=== PATIENT | female | born 1950 | race Caucasian/White ===

== ENCOUNTER → 2017-02-15 | Outpatient (CLI) | payer MEDICARE, MEDICAID ==
[~2017-02-15] MED LIST: ALPR0.5T3 PO; BUTA-177 PO; BUTA1CAP57; CHOL200012 PO; CLON0.1T PO; COREG; ENAL10TA PO; HYDR25TA11 PO; METO25TA35 PO; VASOTEC PO; XANAX; atarax PO
[2017-02-15 16:05] LABS: HEMOGLOBIN 15.5 g/dL (11.7-16.4)
[2017-02-15 16:19] LABS: ASPARTATE AMINO TRANSFERASE 21 U/L (15-37); BLOOD UREA NITROGEN 12 mg/dL (7-18)
== END | disposition home or self-care (01) ==
LOC: STAR 14:19
PROVIDERS: ATTEND Specialist
DX: Z01.811 Encounter for preprocedural respiratory examination (principal); I51.7 Cardiomegaly; M95.4 Acquired deformity of chest and rib; R79.1 Abnormal coagulation profile; Z90.722 Acquired absence of ovaries, bilateral; Z90.710 Acquired absence of both cervix and uterus
CPT/HCPCS: 36415; 71020; 80053; 85025; 85610; 85730; 93005

== ENCOUNTER 2017-03-03 23:40 | Observation (INO) | payer MEDICARE, MEDICAID ==
[~2017-03-03] VITALS: Ht 170.2 cm; Wt 66.4 kg
[2017-03-03] MEDS ORDERED: MORPHINE SULFATE 4 MG/ML, 1ML ONE (23:51)
[2017-03-03] MEDS ORDERED: ONDANSETRON 2MG/ML, 2ML ONE (23:51)
[2017-03-03] MEDS ORDERED: METOCLOPRAMIDE 5 MG/ML, 2ML ONE (23:51)
[2017-03-04] MEDS ORDERED: ONDANSETRON 2MG/ML, 2ML IVPush ONE
[2017-03-04] MEDS ORDERED: SODIUM CHLORIDE 0.9% 1,000ML IVBOLUS ONE
[2017-03-04] MEDS ORDERED: SODIUM CHLORIDE FLUSH 10ML SYR IVF ONE
[2017-03-04] MEDS ORDERED: METOCLOPRAMIDE 5 MG/ML, 2ML IVPush ONE
[2017-03-04 00:34] LABS: BLOOD UREA NITROGEN 8 mg/dL (7-18)
[2017-03-04 00:38] LABS: ASPARTATE AMINO TRANSFERASE 22 U/L (15-37)
[2017-03-04] MEDS ORDERED: SODIUM CHLORIDE 0.9% 1,000 ML IV ONE (01:10)
[2017-03-04] MEDS ORDERED: ONDANSETRON 2MG/ML, 2ML IVPush PRN ×3 (01:30→15:00)
[2017-03-04] MEDS ORDERED: MORPHINE SULFATE 4 MG/ML, 1ML IVPush PRN ×3 (01:30→14:00)
[2017-03-04] MEDS ORDERED: PROMETHAZINE 25 MG/ML, 1ML IM PRN (01:30)
[2017-03-04 07:24] VITALS: BP 119/69
[2017-03-04] MEDS ORDERED: DEXAMETHASONE 4 MG/ML, 1ML ONE (09:37)
[2017-03-04] MEDS ORDERED: PROPOFOL 10 MG/ML, 20ML ONE (09:37)
[2017-03-04] MEDS ORDERED: ONDANSETRON 2MG/ML, 2ML ONE ×2 (09:37→11:09)
[2017-03-04] MEDS ORDERED: CEFOTETAN 1 GM ONE (09:37)
[2017-03-04] MEDS ORDERED: NEOSTIGMINE 1 MG/ML, 10ML ONE (09:37)
[2017-03-04] MEDS ORDERED: GLYCOPYRROLATE 0.2MG/1ML ONE (09:37)
[2017-03-04] MEDS ORDERED: ROCURONIUM 10 MG/ML ONE (09:37)
[2017-03-04] MEDS ORDERED: ACETAMINOPHEN 325 MG TABLET PO PRN (11:00)
[2017-03-04] MEDS ORDERED: PROMETHAZINE 25 MG/ML, 1ML IV PRN (11:00)
[2017-03-04] MEDS ORDERED: METOPROLOL 1 MG/ML, 5ML IV PRN (11:00)
[2017-03-04] MEDS ORDERED: hydrALAzine 20 MG/ML, 1ML IV PRN (11:00)
[2017-03-04] MEDS ORDERED: MIDAZOLAM 1 MG/ML, 2ML IV PRN (11:00)
[2017-03-04] MEDS ORDERED: ALBUTEROL SULFATE 2.5 MG/3 ML NPPB PRN (11:00)
[2017-03-04] MEDS ORDERED: OXYcodone 5 MG/5 ML ORAL.SOL UDC PO PRN (11:00)
[2017-03-04] MEDS: FENTANYL PF 100 MCG/2ML IV PRN ×2 (11:05→11:29)
[2017-03-04] MEDS ORDERED: HYDROmorphone 2 MG/ML, 1ML ONE (11:09)
[2017-03-04] MEDS ORDERED: FENTANYL PF 100 MCG/2ML ONE (11:09)
[2017-03-04] MEDS: HYDROmorphone 1 MG/ML, 1ML IV PRN ×4 (11:15→11:54)
[2017-03-04 13:24] VITALS: BP 135/79
[2017-03-04] MEDS ORDERED: KETOROLAC 30 MG/1 ML IVPush PRN ×2 (14:00→15:00)
[2017-03-04] MEDS ORDERED: OXYcodone/APAP 5/325MG TABLET PO PRN ×2 (14:00→15:00)
[2017-03-04] MEDS ORDERED: KETOROLAC 30 MG/1 ML ONE (14:30)
[2017-03-04] MEDS: LACTATED RINGERS 1,000 ML IV SCH (16:14)
[2017-03-04] MEDS ORDERED: PROCHLORPERAZINE 5 MG/ML, 2ML IVPush PRN (16:30)
[2017-03-04] MEDS ORDERED: BUTALB/APAP/CAFFEINE 50MG/325MG/40MG PO PRN (18:00)
[2017-03-04] MEDS: METOCLOPRAMIDE 5 MG/ML, 2ML IVPush SCH (19:30)
[2017-03-04 19:49] VITALS: BP 134/82
[2017-03-04] MEDS: ENALAPRIL 10 MG TABLET PO SCH (20:30)
[2017-03-05] MEDS: METOCLOPRAMIDE 5 MG/ML, 2ML IVPush SCH ×3 (01:30→10:08)
[2017-03-05 02:15] VITALS: BP 126/68
[2017-03-05 07:25] VITALS: BP 135/74
[2017-03-05] MEDS: ENALAPRIL 10 MG TABLET PO SCH (09:21)
[2017-03-05 09:45] LABS: BLOOD UREA NITROGEN 8 mg/dL (7-18)
[2017-03-05] MEDS: LACTATED RINGERS 1,000 ML IV SCH (10:08)
[2017-03-05] MEDS ORDERED: OXYC-223 PO (10:38)
[2017-03-05] MEDS ORDERED: ONDA4TAB7 PO (10:39)
[2017-03-05 12:25] VITALS: BP 115/74
[2017-03-05 15:05] VITALS: BP 124/77
== END 2017-03-05 16:43 | disposition home or self-care (01) ==
LOC: ED 23:46 → INTOOBSV 03-04 01:10 → EDIP 03-04 01:10 → 4NOR 03-04 03:06 → DCLOUNGE 03-05 15:18
PROVIDERS: ADMIT Specialist; ATTEND Specialist
DX: R19.00 Intra-abdominal and pelvic swelling, mass and lump, unspecified site (principal); D25.9 Leiomyoma of uterus, unspecified; D27.0 Benign neoplasm of right ovary; I10 Essential (primary) hypertension; I49.9 Cardiac arrhythmia, unspecified; F41.9 Anxiety disorder, unspecified; K76.9 Liver disease, unspecified
CPT/HCPCS: 36415; 58571; 74020; 80048; 80053; 81003; 83690; 85025; 86850; 86900; 86923; 88307; 88331; 93005; 96375; 96376; G0378; J0780; J1100; J1170; J1885; J2250; J2405; J2704; J2710; J2765; J3010; J7030; J7120; Q0177; 36430; 96374; J3490; S0074

== ENCOUNTER → 2017-08-23 | Outpatient (CLI) | payer MEDICARE, MEDICAID ==
[~2017-08-23] MED LIST changes: -CHOL200012 PO; +CHOL200074 PO; +ONDA4TAB7 PO; +OXYC-306 PO
== END | disposition home or self-care (01) ==
LOC: CFH 09:35
PROVIDERS: ATTEND Internal Medicine Gastroenterology
DX: K80.20 Calculus of gallbladder without cholecystitis without obstruction (principal); I70.0 Atherosclerosis of aorta
CPT/HCPCS: 76700

== ENCOUNTER 2017-11-21 22:53 | Emergency (ER) | payer MEDICARE, MEDICAID ==
[~2017-11-21] VITALS: Ht 152.4 cm; Wt 62.2 kg
[2017-11-21 23:37] VITALS: BP 151/90
[2017-11-21 23:55] LABS: CULTURE INDICATED? YES; MICROSCOPIC INDICATED
[2017-11-22] MEDS ORDERED: CIPROFLOXACIN 500 MG TABLET ONE (01:25)
[2017-11-22] MEDS ORDERED: CIPROFLOXACIN 500 MG TABLET PO ONE (01:30)
[2017-11-22] MEDS ORDERED: PHENAZOPYRIDINE 200 MG TABLET ONE (01:38)
[2017-11-22] MEDS ORDERED: PHENAZOPYRIDINE 200 MG TABLET PO ONE (02:00)
== END 2017-11-22 01:54 | disposition home or self-care (01) ==
LOC: ED 23:59
DX: N30.01 Acute cystitis with hematuria (principal); I10 Essential (primary) hypertension; F43.10 Post-traumatic stress disorder, unspecified; F41.9 Anxiety disorder, unspecified
CPT/HCPCS: 81001; 87077; 87086; 87186

== ENCOUNTER → 2018-01-16 | Outpatient (CLI) | payer MEDICARE, MEDICAID | END | disposition home or self-care (01) | LOC: CFH 12:55 | PROVIDERS: ATTEND Urology | DX: N39.0 Urinary tract infection, site not specified (principal) | CPT/HCPCS: 76770 ==

== ENCOUNTER 2018-09-05 18:39 | Emergency (ER) | payer MEDICARE, MEDICAID ==
[~2018-09-05] VITALS: Ht 170.2 cm; Wt 64.4 kg
[2018-09-05] MEDS ORDERED: METO25TA35 PO (19:12)
[2018-09-05] MEDS ORDERED: ENAL10TA PO (19:12)
[2018-09-05] MEDS ORDERED: ENAL20TA PO (19:12)
[2018-09-05 19:20] LABS: MICROSCOPIC AUTO
[2018-09-05 19:26] LABS: CULTURE INDICATED? YES
[2018-09-05 20:24] VITALS: BP 128/81
== END 2018-09-05 20:51 | disposition home or self-care (01) ==
LOC: ED 19:17
DX: N30.00 Acute cystitis without hematuria (principal); I10 Essential (primary) hypertension; F43.10 Post-traumatic stress disorder, unspecified
CPT/HCPCS: 81001; 87077; 87086; 87186; 99284

== ENCOUNTER → 2019-01-19 | Outpatient (CLI) | payer MEDICARE, MEDICAID ==
[~2019-01-19] MED LIST changes: -CLON0.1T PO; +CLON0.1T22 PO; +ENAL20TA PO
== END | disposition home or self-care (01) ==
LOC: CFH 09:54
PROVIDERS: ATTEND Internal Medicine Gastroenterology
DX: K80.20 Calculus of gallbladder without cholecystitis without obstruction (principal); E83.110 Hereditary hemochromatosis; R94.5 Abnormal results of liver function studies
CPT/HCPCS: 76700

== ENCOUNTER 2019-03-23 14:00 | Outpatient (CLI) | payer MEDICARE, MEDICAID | END 2019-03-23 23:59 | disposition home or self-care (01) | LOC: CFH 14:00 | PROVIDERS: ATTEND Urology | DX: N39.0 Urinary tract infection, site not specified (principal) | CPT/HCPCS: 76770 ==

== ENCOUNTER → 2019-05-13 | Outpatient (CLI) | payer MEDICARE, MEDICAID ==
[~2019-05-13] MED LIST changes: +GADOBUTROL 7.5 MMOL/7.5 ML VIAL ONE
== END | disposition home or self-care (01) ==
LOC: CFH 13:35
PROVIDERS: ATTEND Psychiatry & Neurology Neurology
DX: I72.0 Aneurysm of carotid artery (principal)
CPT/HCPCS: 70546; A9585

== ENCOUNTER → 2020-08-12 | Outpatient (CLI) | payer MEDICARE, MEDICAID ==
[~2020-08-12] MED LIST changes: -ENAL10TA PO; +ENAL10TA9 PO; -ENAL20TA PO; +ENAL20TA9 PO; -GADOBUTROL 7.5 MMOL/7.5 ML VIAL ONE; +HYDR-826 PO; -HYDR25TA11 PO
== END | disposition home or self-care (01) ==
LOC: CFH 09:53
PROVIDERS: ATTEND Internal Medicine Gastroenterology
DX: K80.20 Calculus of gallbladder without cholecystitis without obstruction (principal); E83.110 Hereditary hemochromatosis
CPT/HCPCS: 76700

== ENCOUNTER → 2020-09-28 | Outpatient (CLI) | payer MEDICARE, MEDICAID | END | disposition home or self-care (01) | LOC: CFH 14:21 | PROVIDERS: ATTEND Neurological Surgery | DX: I72.0 Aneurysm of carotid artery (principal); I61.9 Nontraumatic intracerebral hemorrhage, unspecified | CPT/HCPCS: 70544 ==

== ENCOUNTER 2021-02-14 16:53 | Emergency (ER) | payer MEDICARE, MEDICAID ==
[~2021-02-14] VITALS: Ht 170.2 cm; Wt 60.6 kg
[~2021-02-14 16:53] MED LIST changes: -OXYC-306 PO; +OXYC1TAB17 PO
[2021-02-14] MEDS ORDERED: MAALOX/HYOSCYAMINE/LIDOCAINE 45 ML BTL PO ONE (18:00)
[2021-02-14] MEDS ORDERED: ONDANSETRON ODT 4 MG PO ONE (18:00)
[2021-02-14] MEDS ORDERED: MAALOX/HYOSCYAMINE/LIDOCAINE 45 ML BTL ONE (18:05)
[2021-02-14] MEDS ORDERED: ONDANSETRON ODT 4 MG ONE (18:05)
[2021-02-14 18:26] LABS: BASOPHILS % (AUTO) 1 % (0-1); EOSINOPHILS % (AUTO) 0 % (1-7); LYMPHOCYTES % (AUTO) 27 % (22-44); MEAN CORPUSCULAR HEMOGLOBIN 32.8 pg (27.0-34.8); MONOCYTES % (AUTO) 4 % (2-9); NEUTROPHILS % (AUTO) 68 % (42-75); PLATELET COUNT 238 x10^3/uL (130-400); RED BLOOD COUNT 4.39 x10^6/uL (3.82-5.3); RED CELL DISTRIBUTION WIDTH 12.9 % (9.6-15.2)
[2021-02-14 18:29] LABS: MD NO
[2021-02-14 18:39] LABS: ALANINE AMINOTRANSFERASE 58 U/L (12-78); ALBUMIN 3.6 g/dL (3.4-5.0); ANION GAP 5 mmol/L (5-15); CALCIUM 8.9 mg/dL (8.5-10.1); CHLORIDE 104 mmol/L (98-107); CREATININE 0.68 mg/dL (0.55-1.02)
[2021-02-14 18:41] LABS: ALKALINE PHOSPHATASE 97 U/L (45-117); BILIRUBIN,TOTAL 0.3 mg/dL (0.2-1.0); TOTAL PROTEIN 6.6 g/dL (6.4-8.2)
--- NOTE | 2021-02-14 19:26 | NUR ---
Back from ultrasound, says meds helped a little still has epigastric discomfort but less than it was.
[2021-02-14] MEDS ORDERED: SODIUM CHLORIDE FLUSH 10ML SYR IVF ONE (20:00)
--- NOTE | 2021-02-14 20:38 | NUR ---
PT TO CT VIA [facility] AT THIS TIME.
[2021-02-14] MEDS ORDERED: OMNIPAQUE 350 MG/ML, 100ML BOTTLE ONE (20:41)
[2021-02-14 21:00] VITALS: BP 127/85
== END 2021-02-14 21:51 | disposition home or self-care (01) ==
LOC: ED 21:00
DX: G89.29 Other chronic pain (principal); R10.13 Epigastric pain; R11.2 Nausea with vomiting, unspecified; Z88.0 Allergy status to penicillin; Z88.8 Allergy status to other drugs, medicaments and biological substances
CPT/HCPCS: 36415; 74177; 76700; 80053; 83690; 85025; 99285; Q0162; Q9967

== ENCOUNTER 2021-02-28 16:55 | Emergency (ER) | payer MEDICARE, MEDICAID ==
[~2021-02-28] VITALS: Ht 170.2 cm; Wt 60.1 kg
--- NOTE | 2021-02-28 17:50 | NUR ---
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
--- NOTE | 2021-02-28 17:58 | NUR ---
pt in bed with no signs or symptoms of acute dsitress noted respirations even and unlabored md at bedside to assess.
[2021-02-28] MEDS ORDERED: MAALOX/HYOSCYAMINE/LIDOCAINE 45 ML BTL ONE (18:16)
[2021-02-28] MEDS ORDERED: MAALOX/HYOSCYAMINE/LIDOCAINE 45 ML BTL PO ONE (18:30)
--- NOTE | 2021-02-28 18:49 | NUR ---
md at bedside to assess
[2021-02-28 19:11] VITALS: BP 134/79
== END 2021-02-28 19:25 | disposition home or self-care (01) ==
LOC: ED 18:32
DX: K29.00 Acute gastritis without bleeding (principal); K21.00 Gastro-esophageal reflux disease with esophagitis, without bleeding; R10.13 Epigastric pain; R11.0 Nausea; I10 Essential (primary) hypertension
CPT/HCPCS: 99283

== ENCOUNTER → 2021-05-15 | Outpatient (CLI) | payer MEDICARE, MEDICAID ==
[~2021-05-15] MED LIST changes: +GADOTERATE 10 MMOL/20ML SYR ONE
== END | disposition home or self-care (01) ==
LOC: CFH 14:50
PROVIDERS: ATTEND Registered Nurse
DX: G93.89 Other specified disorders of brain (principal); I62.9 Nontraumatic intracranial hemorrhage, unspecified; I72.0 Aneurysm of carotid artery
CPT/HCPCS: 70544; 70553; A9575